=== PATIENT | female | born 1990 | race Two or more races ===

== ENCOUNTER 2025-02-27 11:45 | Day surgery (SDC) | payer MEDICAID, SELFPAY ==
[2025-02-27] VITALS (9 sets, daily range): BP systolic 107–145; BP diastolic 69–99; PULSE 62–86; RESP 13–20; TEMP 36.4–36.7; O2SAT 97–100; BMI 18.1
[2025-02-27] MEDS: BENZOCAINE 20% (Hurricaine) SPRAY 1 DOSE TOP (13:41)
[2025-02-27] MEDS: fentaNYL CIT INJ 50 mCg/ML AMP 2ML (ASD USE ONLY) IVP (13:42)
[2025-02-27] MEDS: MIDAZOLAM INJ 1 MG/ML VIAL 2 ML (ASD USE ONLY) 2 MG IVP (13:42)
[2025-02-27] MEDS: RINGERS LACTATED 500 ML 500 ML 20 ML IV (13:42)
--- NOTE | 2025-02-27 14:09 | SUR.PHASEII ---
PATIENT V/S STABLE HOWEVER PATIENT REMAINS MODERATELY DROWSY, ALLOWED TO REST LONGER.
--- NOTE | 2025-02-27 14:19 | SUR.PHASEII ---
PATIENT DRINKING WATER WITH NO DIFFICULTY, V/S STABLE, NO COMPLAINTS OF PAIN OR NAUSEA AT THIS TIME. PATIENT ABLE TO HOLD CONVERSATION AND IS NOW MORE AWAKE.
== END 2025-02-27 14:30 | disposition home or self-care (01) ==
PROVIDERS: PCP Nurse Practitioner Family; Referring Provider Internal Medicine Gastroenterology; Visit Provider Internal Medicine Gastroenterology
PROC: (CPT 43239; principal; 2025-02-27 14:15)
DX: K29.50 Unspecified chronic gastritis without bleeding (principal); K22.89 Other specified disease of esophagus
CPT/HCPCS: 43239; A4217; A4649; J1200; J2250; J3010; J7120; A9270

== ENCOUNTER 2025-03-01 11:30 | Day surgery (SDC) | payer MEDICAID, SELFPAY ==
[2025-03-01] VITALS (11 sets, daily range): BP systolic 102–131; BP diastolic 67–77; PULSE 61–87; RESP 14–20; TEMP 36.4–37.1; O2SAT 97–100; BMI 17.8
[2025-03-01 12:06] LABS: HCG Qualitative,Urine Negative
[2025-03-01] MEDS: RINGERS LACTATED 1000 ML 1,000 ML 20 ML IV (12:40)
[2025-03-01] MEDS: fentaNYL CIT INJ 50 mCg/ML AMP 2ML (ASD USE ONLY) IVP (12:42)
[2025-03-01] MEDS: MIDAZOLAM INJ 1 MG/ML VIAL 2 ML (ASD USE ONLY) 2 MG IVP (12:47)
[2025-03-01] MEDS: SIMETHICONE 40 MG/0.6 ML ORAL SYRINGE PO (12:49)
== END 2025-03-01 14:04 | disposition home or self-care (01) ==
PROVIDERS: PCP Nurse Practitioner Family; Referring Provider Internal Medicine Gastroenterology; Visit Provider Internal Medicine Gastroenterology
PROC: 0DBE8ZX Excision of Large Intestine, Via Natural or Artificial Opening Endoscopic, Diagnostic (ICD-10-PCS; CPT 45380; principal; 2025-03-01 13:30)
DX: K63.89 Other specified diseases of intestine (principal); K64.8 Other hemorrhoids; K57.30 Diverticulosis of large intestine without perforation or abscess without bleeding
CPT/HCPCS: 45380; 81025; A4217; A4649; J1200; J2250; J3010; J7120; A9270